=== PATIENT | male | born 1950 | race Caucasian/White ===

== ENCOUNTER 2018-03-04 13:54 | Emergency (ER) | payer MEDICARE, OTHER ==
--- NOTE | 2018-03-04 14:22 | ERPHSYRPT ---
- History of Present Illness Time Seen by Provider: 03/04/18 14:00 Source: patient Exam Limitations: clinical condition Physician History: 67 y/o white male presents with dizziness and vomiting. denies cp, soa and abd pain. denies head injury. never had this type of thing before. he has no sig pain. denies recurrent ear infections. denies illicit drug use. pt is not on any meds. has some intermittent, mild epigastric cramping recently. denies hematuria, dysuria, brbpr. Timing/Duration: today Severity: moderate Character of Deficits: other (dizziness) Deficits: no difficulties, off balance, decrease ability to walk (secondary to dizziness) Baseline/Normal Cognition: alert oriented x 3 Current Cognition: alert oriented x 3 Baseline Gait: walks w/o assistance Associated Symptoms: nausea, vomiting, trouble walking (secondary to dizziness) , No confusion, No fatigue, No fever, No loss of consciousness Allergies/Adverse Reactions: Sulfa (Sulfonamide Antibiotics) Allergy (Verified 12/08/13 21:20) Hx Tetanus, Diphtheria Vaccination/Date Given: No Hx Influenza Vaccination/Date Given: No Hx Pneumococcal Vaccination/Date Given: No - Review of Systems Constitutional: No Symptoms Eyes: No Symptoms Ears, Nose, & Throat: No Symptoms, No Ear Pain, No Ear Discharge Respiratory: No Symptoms Cardiac: No Symptoms Abdominal/Gastrointestinal: No Symptoms Genitourinary Symptoms: No Symptoms Musculoskeletal: No Symptoms Skin: No Symptoms Neurological: Dizziness Psychological: No Symptoms, Alcohol Abuse, No Drug Abuse, No Anxiety, No Depression Endocrine: No Symptoms, No Polyuria, No Polydipsia Hematologic/Lymphatic: No Symptoms, No Anemia Immunological/Allergic: No Symptoms All Other Systems: Reviewed and Negative - Past Medical History Pertinent Past Medical History: No Neurological History: No Pertinent History ENT History: No Pertinent History Cardiac History: No Pertinent History Respiratory History: No Pertinent History Endocrine Medical History: No Pertinent History Musculoskeletal History: No Pertinent History GI Medical History: No Pertinent History History: No Pertinent History Psycho-Social History: No Pertinent History Male Reproductive Disorders: No Pertinent History - Past Surgical History Past Surgical History: Yes Neuro Surgical History: No Pertinent History Cardiac: No Pertinent History Respiratory: No Pertinent History Gastrointestinal: No Pertinent History Genitourinary: No Pertinent History Musculoskeletal: No Pertinent History, Orthopedic Surgery Male Surgical History: No Pertinent History Other Surgical History: ANKLE REPAIR - Social History Smoking Status: Never smoker Exposure to second hand smoke: No Drug Use: none Patient Lives Alone: No Significant Family History: no pertinent family hx - Nursing Vital Signs Nursing Vital Signs: Initial Vital Signs Pulse Rate 91 H 03/04/18 14:14 Respiratory Rate 20 03/04/18 14:14 Blood Pressure 121/77 03/04/18 14:14 O2 Sat by Pulse Oximetry 91 L 03/04/18 14:14 Pain Scale Pain Intensity 0 - Boo Coma Scale Best Eye Response (Boo): (4) open spontaneously Best Verbal Response (Boo): (5) oriented Best Motor Response ([place]): (6) obeys commands Boo Total: 15 - Physical Exam General Appearance: moderate distress, alert, anxiety Eye Exam: bilateral eye: normal inspection, PERRL, EOMI Ears, Nose, Throat Exam: normal ENT inspection, TMs normal, dry mucous membranes Neck Exam: normal inspection, non-tender, supple, full range of motion Respiratory: normal breath sounds, lungs clear, airway intact, No chest tenderness, No respiratory distress Cardiovascular: regular rate/rhythm, normal heart sounds, normal peripheral pulses Gastrointestinal: soft, normal bowel sounds, No tenderness, No guarding, No rebound Rectal Exam: not done Back Exam: normal inspection, normal range of motion, No CVA tenderness, No vertebral tenderness Extremity Exam: normal inspection, normal range of motion, pelvis stable Mental Status: alert, oriented x 3, 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 Exam: normal hearing, normal speech Coordination/Gait: normal finger to nose Motor/Sensory: no motor deficit, no sensory deficit, no pronator drift Skin Exam: warm, dry, pale SpO2 Interpretation: normal Oxygen Delivery: Room Air - Course Nursing assessment & vital signs reviewed: Yes EKG Interpreted by Me: RATE (70), Sinus Rhythm, NORMAL AXIS, NORMAL INTERVALS, NORMAL QRS Ordered Tests: Active Orders 24 hr Category Date Time Status Clean Catch Urine Specimen STAT Care 03/04/18 14:23 Active EKG-ER Only STAT Care 03/04/18 14:23 Active IV Insertion STAT Care 03/04/18 14:23 Active HEAD WITHOUT CONTRAST [CT] Stat Exams 03/04/18 14:40 Completed CBC W DIFF Stat Lab 03/04/18 14:35 Completed CMP Stat Lab 03/04/18 14:35 Completed UA W/RFX UR CULTURE Stat Lab 03/04/18 Received Medication Summary Discontinued Medications Generic Name Dose Route Start Last Admin Trade Name Jeff PRN Reason Stop Dose Admin Sodium Chloride 1,000 mls @ 999 mls/hr 03/04/18 14:23 03/04/18 15:00 Sodium Chloride 0.9% 1000 Ml IV 03/04/18 15:23 999 mls/hr .Q1H1M STA Administration Sodium Chloride Confirm 03/04/18 14:27 Sodium Chloride 0.9% 1000 Ml Administered 03/04/18 14:28 Dose 1,000 mls @ ud .ROUTE .STK-MED ONE Sodium Chloride Confirm 03/04/18 14:55 Sodium Chloride 0.9% 1000 Ml Administered 03/04/18 14:56 Dose 1,000 mls @ ud .ROUTE .STK-MED ONE Sodium Chloride 1,000 mls @ 999 mls/hr 03/04/18 14:58 03/04/18 15:03 Sodium Chloride 0.9% 1000 Ml IV 03/04/18 15:58 999 mls/hr .Q1H1M STA Administration Magnesium Hydroxide 45 ml 03/04/18 15:54 Gi Cocktail 45 Ml (Maalox/Lidocaine) PO 03/04/18 15:55 STAT ONE Ondansetron HCl 4 mg 03/04/18 14:23 03/04/18 14:30 Zofran 4 Mg/2 Ml Vial IV 03/04/18 14:24 4 mg STAT ONE Administration Ondansetron HCl Confirm 03/04/18 14:27 Zofran 4 Mg/2 Ml Vial Administered 03/04/18 14:28 Dose 4 mg .ROUTE .STK-MED ONE Promethazine HCl 12.5 mg 03/04/18 14:46 03/04/18 14:49 Phenergan 25 Mg Inj IV 03/04/18 14:47 12.5 mg STAT ONE Administration Promethazine HCl Confirm 03/04/18 14:47 Phenergan 25 Mg Inj Administered 03/04/18 14:48 Dose 25 mg .ROUTE .STK-MED ONE Lab/Rad Data: Laboratory Result Diagrams 03/04/18 14:35 03/04/18 14:35 Laboratory Results 03/04/18 03/04/18 Range/Units 14:35 14:35 WBC 8.4 (4.0-10.5) K/mm3 RBC 4.25 (4.1-5.6) M/mm3 Hgb 13.3 (12.5-18.0) gm/dl Hct 40.4 L (42-50) % MCV 95.1 (78-100) fl MCH 31.3 (26-32) pg MCHC 32.9 (32-36) g/dl RDW 13.2 (11.5-14.0) % Plt Count 176 (150-450) K/mm3 MPV 11.1 H (6-9.5) fl Gran % 73.1 H (36.0-66.0) % Eos # (Auto) 0.09 (0-0.5) Absolute Lymphs (auto) 1.48 (1.0-4.6) Absolute Monos (auto) 0.65 (0.0-1.3) Lymphocytes % 17.6 L (24.0-44.0) % Monocytes % 7.7 (0.0-12.0) % Eosinophils % 1.1 (0.00-5.0) % Basophils % 0.5 (0.0-0.4) % Absolute Granulocytes 6.16 (1.4-6.9) Basophils # 0.04 (0-0.4) Sodium 137 (137-145) mmol/L Potassium 3.6 (3.5-5.1) mmol/L Chloride 104 (98-107) mmol/L Carbon Dioxide 22 (22-30) mmol/L Anion Gap 14.7 (5-15) MEQ/L BUN 13 (9-20) mg/dL Creatinine 0.96 (0.66-1.25) mg/dL Estimated GFR > 60.0 ML/MIN Glucose 141 H (74-106) mg/dL Calcium 9.5 (8.4-10.2) mg/dL Total Bilirubin 0.50 (0.2-1.3) mg/dL AST 32 (17-59) U/L ALT 25 (0-50) U/L Alkaline Phosphatase 100 (38-126) U/L Serum Total Protein 7.4 (6.3-8.2) g/dL Albumin 4.5 (3.5-5.0) g/dL - Progress Progress: improved Progress Note: 03/04/18 15:55 pt states he is feeling better. would like to try a gi cocktail. 03/04/18 16:27 pt now hungry and thirsty. ct head-normal noncontrast ct head Counseled pt/family regarding: lab results, diagnosis, need for follow-up, rad results - Departure Time of Disposition: 16:28 Departure Disposition: Home Clinical Impression: Dizziness, Vomiting Condition: Stable Critical Care Time: No Referrals: SENAIT YU [Primary Care Provider] - Additional Instructions: drink plenty of fluids. follow up with primary doctor for further management. return to ED if symptoms worsen Prescriptions: Meclizine HCl 25 mg [Antivert 25 mg] 25 mg PO Q8H PRN #10 tablet MDD 3 PRN Reason: Dizziness
[2018-03-04] MEDS ORDERED: Zofran 4 MG/2 ML VIAL IV ONE (14:23)
[2018-03-04] MEDS ORDERED: Sodium Chloride 0.9% 1000 ML 1,000 ML ONE ×2 (14:27→14:55)
[2018-03-04] MEDS ORDERED: Zofran 4 MG/2 ML VIAL ONE (14:27)
[2018-03-04] MEDS: Sodium Chloride 0.9% 1000 ML 1,000 ML IV STA ×2 (14:31→15:00)
[2018-03-04] MEDS ORDERED: Phenergan 25 MG INJ IV ONE (14:46)
[2018-03-04] MEDS ORDERED: Phenergan 25 MG INJ ONE (14:47)
[2018-03-04 14:49] LABS: BASOPHIL % 0.5 % (0.0-0.4); Basophil (Absolute #) 0.04 (0-0.4); Eosinophil % 1.1 % (0.00-5.0); Eosinophil (Absolute #) 0.09 (0-0.5); Granulocyte Absolute (ANC) 6.16 (1.4-6.9); Granulocytes % 73.1 % (36.0-66.0); Hematocrit 40.4 % (42-50); Hemoglobin 13.3 gm/dl (12.5-18.0); Lymphocyte (Absolute #) 1.48 (1.0-4.6); Lymphocytes % 17.6 % (24.0-44.0); Mean Cell Volume 95.1 fl (78-100); Mean Corpuscular Hemoglobin 31.3 pg (26-32); Mean Corpuscular Hgb Concent. 32.9 g/dl (32-36); Mean Platelet Volume 11.1 fl (6-9.5); Monocyte (Absolute #) 0.65 (0.0-1.3); Monocytes % 7.7 % (0.0-12.0); Platelet Count 176 K/mm3 (150-450); Red Blood Count 4.25 M/mm3 (4.1-5.6); Red Cell Distribution Width 13.2 % (11.5-14.0); White Blood Count 8.4 K/mm3 (4.0-10.5)
[2018-03-04] MEDS ORDERED: Sodium Chloride 0.9% 1000 ML 1,000 ML IV STA (14:58)
[2018-03-04 15:04] LABS: ALBUMIN 4.5 g/dL (3.5-5.0); ALKALINE PHOSPHATASE 100 U/L (38-126); ANION GAP 14.7 MEQ/L (5-15); BLOOD UREA NITROGEN 13 mg/dL (9-20); CHLORIDE 104 mmol/L (98-107); Calcium 9.5 mg/dL (8.4-10.2); Carbon Dioxide 22 mmol/L (22-30); Creatinine 1 0.96 mg/dL (0.66-1.25); Glucose 141 mg/dL (74-106); Potassium 3.6 mmol/L (3.5-5.1); SGOT/AST 32 U/L (17-59); SGPT/ALT 25 U/L (0-50); SODIUM 137 mmol/L (137-145); Total Protein 7.4 g/dL (6.3-8.2)
--- NOTE | 2018-03-04 15:39 | XRAY ---
Indication: Dizziness, nausea, and vomiting. Head injury 3-4 days ago. Multiple contiguous axial images obtained through the head without contrast. Comparison: None Normal appearing brain parenchyma, ventricles, and bony calvarium. Visualized paranasal sinuses and mastoid air cells are clear. Impression: Normal CT head without contrast exam. CT DI 50.13
[2018-03-04 15:40] VITALS: BP 98/50; PULSE 78; O2SAT 97
[2018-03-04] MEDS ORDERED: GI COCKTAIL 45 ML (Maalox/Lidocaine) PO ONE (15:54)
[2018-03-04] MEDS ORDERED: XYLOCAINE HCl Viscous ONE (16:13)
[2018-03-04] MEDS ORDERED: MAALOX ES 30 ML UNIT DOSE ONE (16:14)
[2018-03-04 16:22] LABS: Appearance CLEAR (CLEAR); Bilirubin NEGATIVE (NEGATIVE); Blood NEGATIVE Ery/ul (0-5); Glucose NEGATIVE (NEGATIVE); Ketones SMALL (NEGATIVE); Leukocyte Esterase NEGATIVE (NEGATIVE); Nitrite NEGATIVE (NEGATIVE); Protein,Urine Dip NEGATIVE (Negative); Specific Gravity 1.017 (1.005-1.025); Urobilinogen NEGATIVE mg/dL (0-1)
[2018-03-04] MEDS ORDERED: ANTIVERT 25 MG PO ONE (16:32)
[2018-03-04] MEDS ORDERED: ANTIVERT 25 MG ONE (16:36)
== END 2018-03-04 16:44 | disposition home or self-care (01) ==
LOC: ED 13:54
DX: R42 Dizziness and giddiness (principal); R11.2 Nausea with vomiting, unspecified
CPT/HCPCS: 36000; 36415; 70450; 80053; 81001; 85025; 93005; 96360; 96361; 96374; 96375; 99284; J2405; J2550; A9270-GY

== ENCOUNTER 2018-11-17 08:59 | Day surgery (SDC) | payer MEDICARE, OTHER ==
--- NOTE | 2018-11-17 08:10 | HP ---
DATE OF SURGERY: 11/17/2018 ANTICIPATED PROCEDURES: 1) EGD. 2) Colonoscopy. HISTORY OF PRESENT ILLNESS: The patient has upper abdominal pain, questionable ulcer. He has not had endoscopic examination. It is greater than ten years on colon exam. The patient's sister did have colon cancer at approximately age 60. PAST MEDICAL HISTORY: ALLERGIES: SULFA, CIPRO. MEDICATIONS: Viagra. PAST SURGICAL HISTORY: Left ankle. REVIEW OF SYSTEMS: Heart murmur. SOCIAL HISTORY: Negative. FAMILY HISTORY: Negative. PHYSICAL EXAMINATION: VITAL SIGNS: Normal. CHEST: Clear. COR: Regular. ABDOMEN: Satisfactory. PLAN: EGD and colonoscopy.
[~2018-11-17 08:59] MED LIST: Lactated Ringers 1,000 ML IV SCH
[2018-11-17] MEDS ORDERED: Lactated Ringers 1,000 ML IV ONE (09:02)
[2018-11-17 09:27] VITALS: O2SAT 98
[2018-11-17] MEDS ORDERED: DIPRIVAN 200 MG/20 ML IV ONE ×2 (10:34→10:52)
[2018-11-17] MEDS ORDERED: Ketamine HCl 50 MG/ML ONE (10:35)
[2018-11-17] MEDS ORDERED: SUBLIMAZE 100 MCG/2 ML ONE (10:54)
[2018-11-17] MEDS ORDERED: ROBINUL ONE (11:02)
--- NOTE | 2018-11-17 12:02 | OP ---
SURGERY DATE/TIME: 11/17/2018 1040 PREOPERATIVE DIAGNOSES: 1) Epigastric pain. 2) Screening. POSTOPERATIVE DIAGNOSES: 1) Grade II to III gastroesophageal reflux disease. 2) Gastritis. 3) Superficial duodenal ulcers. 4) Severe diverticulosis of colon. PROCEDURES: 1) EGD with cold biopsy. 2) Colonoscopy complete to cecum. SURGEON: Joseph Antonio M.D. ANESTHESIA: MAC. COMPLICATIONS: None. CONDITION: Stable. INDICATION: A patient with epigastric pain possible ulcer, has not had any endoscopic exam. He is also requiring screening. DESCRIPTION OF PROCEDURE: He was taken to endoscopy. Left lateral decubitus position. Scope introduced. Pharyngoesophageal junction normal. Esophagus normal. Grade II to III gastroesophageal reflux disease, small hiatal hernia 0.5 inch. Fundus and body normal. Antritis present. The patient had three superficial duodenal ulcers on the anterior surface just right inside the pylorus. Duodenal bulb otherwise okay. Second portion satisfactory. The scope withdrawn looped upon itself satisfactory. Very small hiatal hernia. Scope withdrawn. Anal digital examination satisfactory. Scope advanced to the cecum. Base of cecum, ileocecal valve and appendiceal orifice all normal. Ascending, hepatic, transverse, splenic, descending. In the sigmoid over 100 pouches were present. Severe diverticulosis of sigmoid with no complication. Rectum and anus normal. PLAN: Ten year follow up scope. Patient was placed on Protonix. He will return back to the office in two weeks to see how his Protonix is doing.
[2018-11-17 12:29] VITALS: BP 123/72; PULSE 58
== END 2018-11-17 12:30 | disposition home or self-care (01) ==
LOC: SDC 08:59
PROVIDERS: ATTEND Surgery
DX: Z12.11 Encounter for screening for malignant neoplasm of colon (principal); K26.9 Duodenal ulcer, unspecified as acute or chronic, without hemorrhage or perforation; K29.70 Gastritis, unspecified, without bleeding; K57.30 Diverticulosis of large intestine without perforation or abscess without bleeding; R10.10 Upper abdominal pain, unspecified; K44.9 Diaphragmatic hernia without obstruction or gangrene; K21.9 Gastro-esophageal reflux disease without esophagitis; Z80.0 Family history of malignant neoplasm of digestive organs
CPT/HCPCS: 43239; G0105; 88305; J2704; J3010